=== PATIENT | male | born 1945 | race Caucasian/White ===

== ENCOUNTER 2020-01-08 18:30 | Inpatient (IN) | payer MEDICARE, MEDICAID, SELFPAY ==
[2020-01-08] VITALS (25 sets, daily range): BP systolic 118–158; BP diastolic 69–106; PULSE 82–94; RESP 19–34; TEMP 36.6; O2SAT 94–100
--- NOTE | ~2020-01-08 | CT_ITS ---
EXAMINATION: CT brain wo con, CT facial bones wo con EXAM DATE: 01/09/2020 14:22 INDICATION: Fell this morning. Facial injury. TECHNIQUE: Spiral CT of the head was performed without contrast. Axial, coronal and sagittal images were reviewed. Spiral CT of the facial bones was performed without contrast. Axial images were revie wed. Coronal and sagittal reformatted images were also reviewed. The dose-length product (DLP) for this examination was 681.00 (accession [id number]), 485.66 (accession [id number]) mGy-cm. Th e exposure was tailored according to patient size, and iterative reconstruction (ASIR) was used as ad ditional dose reduction technique. There is no prior study for comparison. 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 Old small right occipital lobe infarction. There is no acute intraparenchymal hemorrhage. No evidence of intraparenchymal brai n mass lesion. No evidence of acute infarction. There is mild to moderate periventricular and subcor tical hypodensity, nonspecific but probably related to small vessel ischemic disease. There is mild to moderate prominence of the sulci and ventricles related to cerebral atrophy. There is intracran ial carotid arteriosclerosis. There is no mass effect or midline shift. There is no obstructive hyd rocephalus suspected. There are no extra-axial collections. There are no calvarial acute fractures. FACIAL CT: There are bilateral nasal bone fractures which could be acute or acute on chronic, some b uckling and minimal depression on the left side. Possible overlying laceration, clinical correlation. There is moderate to severe leftward nasal septal deviation, without septal fracture suspected. Righ t-sided sara bullosa. 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 Patient has had left-sided ocular lens surgery. The visualized sinuses and mastoid air cells are well aerated. IMPRESSION: 1. No acute intracranial findings. 2. Bilateral nasal bone fractures, acute or acute on chronic. Reviewed, dictated and finalized at location A. NESS DEVELOPMENT DIRECTOR IMPRESSION: 1. No acute intracranial findings. 2. Bilateral nasal bone fractures, acute or acute on chronic.
--- NOTE | ~2020-01-08 | XR_ITS ---
EXAMINATION: XR chest 1V portable EXAM DATE: 01/08/2020 18:49 INDICATION: Increasing shortness of breath. TECHNIQUE: Portable AP frontal chest x-ray was obtained. There is no prior study for comparison. FINDINGS: The cardiac silhouette is enlarged. There is pulmonary vascular congestion. There is extens francisco indistinct reticulation with a bibasal predominance which may indicate pulmonary edema. Probable small to moderate subpulmonic pleural effusions. Sternotomy wires are present without findings to sug gest sternal dehiscence. There is no pneumothorax suspected. There are no osseous abnormalities ident ified. IMPRESSION: 1. Findings suspicious for moderate CHF exacerbation. 2. Infection not excludable. Reviewed, dictated and finalized at location A. CORRECTIONS
--- NOTE | 2020-01-08 18:29 | ECG_ITS ---
Measurements Intervals [place] Rate: 90 P: 50 CT: 152 QRS: 28 QRSD: 115 T: 72 QT: 344 QTc: 423 Interpretive Statements SINUS RHYTHM ATRIAL PREMATURE COMPLEX POSSIBLE LEFT ATRIAL ENLARGEMENT INTRAVENTRICULAR CONDUCTION DELAY DELAYED PRECORDIAL R/S TRANSITION LOW QRS VOLTAGE IN LIMB LEADS BORDERLINE ST-T WAVE ABNORMALITY- INF/HIGH LAT LEADS BASELINE WANDER- V2 Electronically Signed On 01-09-2020 8:40:16 HOT PLATE PRESS OPERATOR by Jose Bhandari D.O.
--- NOTE | 2020-01-08 18:36 | PC.NURSE ---
Patient unable to provide at home med list and past medical history. States he doesn't know any of them and he doesn't know what pharmacy he uses.
--- NOTE | 2020-01-08 18:40 | ED.SOB ---
HPI - SOB/Dyspnea General Chief Complaint: Shortness of Breath/Dyspnea Stated Complaint: Shortness of breath Time Seen by Provider: 01/08/20 18:31 History of Present Illness HPI Narrative: History limited by extremely poor historian. He reports that he has been short of breath since he was a child. Worse recently. He denies that he has any medical problems, but says that he is on a lot of medications and does not know what they are for. He was apparently at another hospital yesterday. He does not know which one or whether he was admitted. He says that he lost his PCP 4 years ago and has not gotten a new one. No fever, chest pain, leg swelling. Related Data Home Medications Medication Instructions Recorded Confirmed Daliresp 500 mcg PO DAILY 01/09/20 01/09/20 Flovent HFA 220 mcg INHALATION BID 01/09/20 01/09/20 Trelegy Ellipta 1 inh INHALATION DAILY 01/09/20 01/09/20 albuterol sulfate 2 puff INHALATION Q4-6H PRN 01/09/20 01/09/20 amlodipine 5 mg PO DAILY 01/09/20 01/09/20 aspirin 325 mg PO DAILY 01/09/20 01/09/20 celecoxib [Celebrex] 200 mg PO DAILY 01/09/20 01/09/20 doxycycline hyclate 100 mg PO BID 01/09/20 01/09/20 ezetimibe 10 mg PO DAILY 01/09/20 01/09/20 levetiracetam 500 mg PO BID 01/09/20 01/09/20 lisinopril 40 mg PO DAILY 01/09/20 01/09/20 metoprolol tartrate 50 mg PO Q12H 01/09/20 01/09/20 montelukast 10 mg PO HS 01/09/20 01/09/20 olanzapine 5 mg PO DAILY 01/09/20 01/09/20 olanzapine 10 mg PO HS 01/09/20 01/09/20 prednisone 20 mg PO BID 01/09/20 01/09/20 simvastatin 40 mg PO QPM 01/09/20 01/09/20 Allergies Allergy/AdvReac Type Severity Reaction Status Date / Time morphine Allergy Unknown Verified 01/09/20 02:41 Review of Systems Review of Systems: All systems reviewed & are unremarkable except as noted in HPI and below Constitutional: Constitutional: Denies fever(s) Cardiovascular: Cardiovascular: Denies chest pain Respiratory: Respiratory: Reports dyspnea Gastrointestinal: Gastrointestinal: Denies abdominal pain, Denies nausea and Denies vomiting Neurologic: Denies numbness and Denies weakness [facility] Past Medical History Medical History Medical history unknown Unknown family medical history Surgical History Surgical History Hx of CABG Family History Family History Other Acute myocardial infarction Unknown family medical history Social History Social History Smoking packs per day: 2 Smoking cigarettes per day: 40.0 Smoking status: Current every day smoker Tobacco type: cigarettes Second hand tobacco smoke exposure: Yes Alcohol intake: former Substance use: never Substance use type: does not use Gender identity (if verbalized by the patient): Male Sexual Orientation (if Verbalized by the Patient): Straight or Heterosexual Spiritual care concerns: No Exam Const: General: alert and ill appearing chronically Orientation/consciousness: patient oriented x3 HENMT: Head: normal to inspection Eyes: Pupils: Equal, round and reactive pupils present Resp: Effort & Inspection: tachypneic Auscultation: crackles and wheezes Cardio: Rate: regular rate Rhythm: regular rhythm GI: GI Palp: Yes Soft to palpation and No Tenderness to palpation present (GI) Skin: General skin exam: normal color Neuro: General: patient oriented x3 and moves all extremities Extrem: General: no edema Course Vital Signs Vital signs: Vital Signs Temperature 36.6 C 01/08/20 18:29 Pulse Rate 94 01/08/20 18:29 Respiratory Rate 34 H 01/08/20 18:29 Blood Pressure 158/96 H 01/08/20 18:29 Pulse Oximetry 97 01/08/20 18:29 Temperature 36.8 C 01/12/20 10:00 Pulse Rate 68 01/12/20 10:00 Respiratory Rate 20 01/12/20 10:00 Blood Pressure 107/50 L 01/12/20 10:00 Pul
[2020-01-08 19:04] LABS: Basophils Percent Auto 0.1 % (0.2-1.2); Eosinophils Absolute Auto 0.1 K/mm3 (0-0.3); Eosinophils Percent Auto 0.5 % (0-4.4); Hematocrit 36.8 % (42.0-52.0); Hemoglobin 11.5 g/dL (14.0-18.0); Immature Granulocyte Absolute 0.06 K/mm3 (0.00-0.031); Immature Granulocyte Percent A 0.5 % (0-0.5); Lymphocytes Absolute Auto 1.62 K/mm3 (0.9-3.2); Lymphocytes Percent Auto 12.3 % (18.3-44.2); Mean Corpuscular HGB Conc 31.3 g/dl (32-36); Mean Corpuscular Hemoglobin 26.8 pg (26-34); Mean Corpuscular Volume 85.8 fl (80-100); Mean Platelet Volume 10.4 fl (7.4-10.4); Monocytes Absolute Auto 0.8 K/mm3 (0.1-0.6); Monocytes Percent Auto 6.1 % (2.6-8.5); Neutrophils Absolute Auto 10.6 K/mm3 (1.3-6.7); Neutrophils Percent Auto 80.5 % (45.5-73.1); Nucleated Red Blood Cells Perc 0.2 % (0.0-0.2); Platelet Count Result 304 k/mm3 (150-375); Red Blood Count 4.29 M/mm3 (4.6-6.20); Red Cell Distribution Width 15.4 % (11.5-14.5); White Blood Count 13.2 K/mm3 (4.5-10.0)
[2020-01-08] MEDS: METOPROLOL TARTRATE INJ 5 MG/5 ML VIAL IV PUSH (19:06)
[2020-01-08] MEDS: FUROSEMIDE INJ 40 MG/4 ML VIAL IV PUSH (19:06)
[2020-01-08 19:19] LABS: Potassium 3.9 mmol/L (3.4-5.0)
[2020-01-08 19:23] LABS: Anion Gap 7 mmol/L (8-16); Blood Urea Nitrogen 24 mg/dL (9-20); Calcium 8.3 mg/dL (8.4-10.2); Carbon Dioxide 28 mmol/L (22-30); Chloride 105 mmol/L (98-107); Estimated Glomerular Filt Rate > 60; Glucose 115 mg/dL (75-110); Sodium 140 mmol/L (137-145)
[2020-01-08 19:28] LABS: Alveolar/Arterial O2 Gradient 47.4 mmHg; Base Excess ABG -1.3 mEq/l (+/-2.0); Fractional Inspired Oxygen 21 %; HCO3 ABG 21.9 mEq/l (22.0-26.0); Oxygen Content ABG 15.8 %vol (16.0-22.0); Oxygen Saturation ABG 93.5 % (95.0-100.0); Oxyhemoglobin 88.4 % THb (90.0-100.0); PCO2 ABG 32.3 mmHg (35.0-45.0); PO2 ABG 63.7 mmHg (80.0-100.0); PO2 FiO2 Ratio Arterial Blood 3.03 %; Total Hemoglobin 12.7 g/dL (12.0-18.0)
[2020-01-08 19:29] LABS: Device ROOM AIR; Modified Allen's Test Pass; Site Drawn LEFT RADIAL
[2020-01-08 19:44] LABS: NT Pro B Type Natriuretic Pept 17500 PG/ML (5-100); Troponin I 0.065 ng/mL (0.000-0.034)
--- NOTE | 2020-01-08 21:46 | PM.IMHP ---
H&P: HPI History of Present Illness Date/Time: 01/08/20 21:46 Chief complaint: CHF exacerbation, pneumonia, COPD Narrative: This is a 75-year-old obese male with CAD+ s/p CABG who presented to the hospital this evening at the behest of his family secondary to increased shortness of breath and wheezing. the patient admits that he has emphysema and is known to smoke more than 2 packs of cigarettes daily. He tells me that he does not take any medications daily and he does not regularly see doctors. The patient was recently admitted to [facility] and signed himself out against medical advice yesterday. Tonight he denies any significant chest pain, fever, chills, palpitations, abdominal pain, nausea, vomiting, dysuria, hematuria, diarrhea, rectal bleeding, or focal neurological deficits. The patient was evaluated emergency room this evening and chest x-ray demonstrated bilateral pulmonary edema and cardiomegaly. ABG showed hypoxemia and routine labs demonstrated a mildly elevated troponin of 0.065. BNP was elevated at 17,500. He cannot tell me if he has been diagnosed in the past with congestive heart failure. He has been treated in the emergency room this evening with IV Lasix and IV antibiotics. He was swabbed for Coronavirus. We been asked to admit the patient to the hospital for further care. Review of Systems Review of Systems: All systems reviewed & are unremarkable except as noted in HPI and below PMFSH Past Medical History Medical History (Updated 01/08/20 @ 22:00 by Bam Diaz MD) Medical history unknown Unknown family medical history Surgical History Surgical History (Updated 01/08/20 @ 21:52 by Bam Diaz MD) Hx of CABG Family History Family History Other Acute myocardial infarction Unknown family medical history Social History Social History (Updated 01/08/20 @ 21:53 by Bam Diaz MD) Smoking packs per day: 2 Smoking cigarettes per day: 40.0 Smoking status: Current every day smoker Tobacco type: cigarettes Second hand tobacco smoke exposure: Yes Alcohol intake: former Substance use: never Substance use type: does not use Gender identity (if verbalized by the patient): Male Sexual Orientation (if Verbalized by the Patient): Straight or Heterosexual Spiritual care concerns: No Meds Home Medications and Allergies Home Medications Medication Instructions Recorded Confirmed Type albuterol sulfate 2 puff INHALATION Q4-6H PRN 01/09/20 01/09/20 History amlodipine 5 mg PO DAILY 01/09/20 01/09/20 History aspirin 325 mg PO DAILY 01/09/20 01/09/20 History celecoxib [Celebrex] 200 mg PO DAILY 01/09/20 01/09/20 History doxycycline hyclate 100 mg PO BID 01/09/20 01/09/20 History ezetimibe 10 mg PO DAILY 01/09/20 01/09/20 History fluticasone propionate [Flovent 220 mcg INHALATION BID 01/09/20 01/09/20 History HFA] [id number]-[id number]-hteaeeon 1 inh INHALATION DAILY 01/09/20 01/09/20 History [Trelegy Ellipta] levetiracetam 500 mg PO BID 01/09/20 01/09/20 History lisinopril 40 mg PO DAILY 01/09/20 01/09/20 History metoprolol tartrate 50 mg PO Q12H 01/09/20 01/09/20 History montelukast 10 mg PO HS 01/09/20 01/09/20 History olanzapine 5 mg PO DAILY 01/09/20 01/09/20 History olanzapine 10 mg PO HS 01/09/20 01/09/20 History prednisone 20 mg PO BID 01/09/20 01/09/20 History roflumilast [Daliresp] 500 mcg PO DAILY 01/09/20 01/09/20 History simvastatin 40 mg PO QPM 01/09/20 01/09/20 History Allergies Allergy/AdvReac Type Severity Reaction Status Date / Time morphine Allergy Unknown Verified 01/09/20 02:41 Vital Signs Vital Signs - 24 hr 01/08/20 18:29 01/08/20 18:37 01/08/20 19:06 Temperature 36.6 C Pulse Rate 94 92 91 Respiratory Rate 34 H Blood Pressure 158/96 H Pulse Oximetry 97 98 01/08/20 19:07 01/08/20 19:20 Temperature Pulse Rate 87 Respi
[2020-01-08 22:50] LABS: Magnesium 2.2 mg/dL (1.6-2.3)
[2020-01-09] VITALS (27 sets, daily range): BP systolic 108–138; BP diastolic 59–103; PULSE 62–109; RESP 16–30; TEMP 36.1–36.4; O2SAT 90–97; BMI 25.4
[2020-01-09] MEDS: LORazepam INJ (*CRX) 2 MG/ML VIAL 1 MG IV PUSH ×2 (00:01→05:09)
[2020-01-09 02:27] LABS: Troponin I 0.065 ng/mL (0.000-0.034)
[2020-01-09 03:47] LABS: Influenza Control Positive
[2020-01-09 05:26] LABS: Hematocrit 37.9 % (42.0-52.0); Hemoglobin 11.8 g/dL (14.0-18.0); Immature Granulocyte Absolute 0.05 K/mm3 (0.00-0.031); Immature Granulocyte Percent A 0.4 % (0-0.5); Lymphocytes Absolute Auto 1.76 K/mm3 (0.9-3.2); Lymphocytes Percent Auto 15.7 % (18.3-44.2); Mean Corpuscular HGB Conc 31.1 g/dl (32-36); Mean Corpuscular Hemoglobin 26.4 pg (26-34); Mean Corpuscular Volume 84.8 fl (80-100); Mean Platelet Volume 10.4 fl (7.4-10.4); Monocytes Absolute Auto 0.7 K/mm3 (0.1-0.6); Monocytes Percent Auto 6.1 % (2.6-8.5); Neutrophils Absolute Auto 8.7 K/mm3 (1.3-6.7); Neutrophils Percent Auto 77.8 % (45.5-73.1); Platelet Count Result 293 k/mm3 (150-375); Red Blood Count 4.47 M/mm3 (4.6-6.20); White Blood Count 11.2 K/mm3 (4.5-10.0)
--- NOTE | 2020-01-09 05:39 | ADMGEN ---
This patient, Leonard Martin, was admitted to IMU Room 207-01 on 01/08/20 at 2330. Patient/family oriented to hospital policies and general routines including ID bracelet, bed and alarms, visiting hours, pain management, procedures, bathroom and other care routines, personal items, smoking policy, room service/diet, and visiting hours. Information on how to activate the Rapid Response Team has been discussed. Patient/Family are encouraged to report perceived risks to care and to ask questions if they do not understand what they are told or what they should do.
--- NOTE | 2020-01-09 05:40 | PC.NURSE ---
01/08/20 at 2335-Pt noted to be beligerant to nursing staff, attempting to pull out IV and refusing to put on the teletmetry monitor and hospital gown and is refusing to leave the O2 cannula in his nose. Pt wanting to sign out AMA and states I will just walk home then . Pt is only A&Ox1 at this time. Dr. Diaz called and updated on Pt's condition. 2336-Pt's temper escalated and Pt is no longer staying in the bed with redirection. Veronica Corcoran called overhead. Dr. Diaz at bedside to assess the Pt and new orders received. Will continue to monitor the Pt closely.
[2020-01-09 05:46] LABS: Anion Gap 9 mmol/L (8-16); Blood Urea Nitrogen 22 mg/dL (9-20); Calcium 8.4 mg/dL (8.4-10.2); Carbon Dioxide 28 mmol/L (22-30); Chloride 103 mmol/L (98-107); Estimated CRCL calculation 59 ml/min; Estimated Glomerular Filt Rate > 60; Glucose 100 mg/dL (75-110); Potassium 3.9 mmol/L (3.4-5.0); Sodium 140 mmol/L (137-145)
--- NOTE | 2020-01-09 08:24 | PM.IMPN ---
Progress Note: A&P Assessment and Plan (1) Tobacco dependence: Code(s): F17.200 - Nicotine dependence, unspecified, uncomplicated Status: Chronic (2) Suspected 2019 novel coronavirus infection: Code(s): Z20.828 - Contact with and (suspected) exposure to other viral communicable diseases Status: Acute (3) Elevated troponin: Code(s): R77.8 - Other specified abnormalities of plasma proteins Status: Acute (4) Acute hypoxemic respiratory failure: Code(s): J96.01 - Acute respiratory failure with hypoxia Status: Acute (5) Leukocytosis: Qualifiers: Leukocytosis type: unspecified Qualified Code(s): D72.829 - Elevated white blood cell count, unspecified Code(s): D72.829 - Elevated white blood cell count, unspecified Status: Acute (6) Acute exacerbation of chronic obstructive pulmonary disease (COPD): Code(s): J44.1 - Chronic obstructive pulmonary disease with (acute) exacerbation Status: Acute (7) Acute exacerbation of CHF (congestive heart failure): Qualifiers: Heart failure type: unspecified Qualified Code(s): I50.9 - Heart failure, unspecified Code(s): I50.9 - Heart failure, unspecified Status: Acute (8) Altered mental status: Qualifiers: Altered mental status type: somnolence Qualified Code(s): R40.0 - Somnolence Code(s): R41.82 - Altered mental status, unspecified Status: Acute (9) Nasal bone fracture: Code(s): S02.2XXA - Fracture of nasal bones, initial encounter for closed fracture Status: Acute Additional Plan # acute encephalopathy -CT head did not find any intracranial issues -ordered brain MRI, EEG, consulting Neurology -patient does Keppra home medication, may have seizure history -q4hr neuro checks -patient was given Xanax 2 mg however he was altered prior to medication -will be careful as we cannot do 1 on 1 sitter while COVID is being ruled out -use bed alarm, fall precautions -patient has psychiatric history, may have dementia -obtaining primary care provider notes -check UDS # fall secondary to sedation # acute on chronic nasal fracture -patient fell on his face -CT head did not find any intracranial issues, there is acute on chronic nasal fracture, clinically he has no blood in nares and no obvious bruising so it is unclear how acute it truly is. he has a history of facial surgeries and cleft palate -patient has a history of cleft palate # hypoxia -nonlabored respirations with good O2 saturation by the a.m. -COVID-19 test pending, versus COPD exacerbation versus CHF exacerbation -continue isolation precautions until COVID-19 test results -he has coarse lung sounds and after CT scan needed 2 L oxygen but was on room air all morning # chronic conditions -CAD, history of CO with CHF: Aspirin, statin, metoprolol, ezetimibe -hypertension: Metoprolol, lisinopril, amlodipine -COPD: Daliresp, prednisone, Singulair, trelegy, albuterol -psychiatric medications, likely dementia: On olanzapine, will see PCP notes -likely seizure history: On Keppra -patient on doxycycline -osteoarthritis: celebrex Diet: Carb controlled fluid restricted if awake enough to eat DVT prophylaxis: SCDs Code status: Full code Disposition: IMU Subjective Date/time seen: 01/09/20 08:24 Patient examined. He was naked this morning and refused to talk to me. He apparently had left AMA from a different facility. He is not cooperating with staff. Was agitated removed his IVs. Because he was walking up and down hallways he was given 2 mg Xanax and went back to bed. Patient did tolerate taking his p.o. medications. Later in the morning he wanted to leave, got dressed, started walking out on his own, on his way out of his room he had fallen face forward. CT head showed acute on chronic bilateral nasal fractures. Patient is COVID-19 rule out. He is not having any respiratory issues breathin
[2020-01-09] MEDS: FLUTICASONE PROP 220 MCG (*SP) 12 GM INHALER 2 PUFF INHALATION ×2 (09:08→20:58)
[2020-01-09] MEDS: levETIRAcetam 500 MG TABLET PO (11:38)
[2020-01-09] MEDS: ASPIRIN 325 MG ENTERIC TABLET PO (11:38)
[2020-01-09] MEDS: amLODIPine BESYLATE 5 MG TABLET PO (11:38)
[2020-01-09] MEDS: lisinopriL 20 MG TABLET 40 MG PO (11:38)
[2020-01-09] MEDS: METOPROLOL TARTRATE 50 MG TAB PO (11:40)
[2020-01-09] MEDS: ROFLUMILAST 500 MCG TABLET PO (11:41)
[2020-01-09] MEDS: ALPRAZolam (*CRX) 0.5 MG TABLET 2 MG PO (12:01)
[2020-01-09 13:24] LABS: Glucose Point of Care 81 (65-105)
[2020-01-09] MEDS: FUROSEMIDE INJ 40 MG/4 ML VIAL IV PUSH (20:17)
[2020-01-09] MEDS: ALBUTEROL SULFATE (*SP) AEROSOL 1 PUFF 2 PUFF INHALATION (20:58)
[2020-01-09 23:54] LABS: SARS-CoV-2 RNA PCR Negative
[2020-01-10] VITALS (17 sets, daily range): BP systolic 90–157; BP diastolic 52–80; PULSE 68–100; RESP 16–26; TEMP 35.9–36.6; O2SAT 90–98
[2020-01-10] MEDS: OLANZapine 10 MG INJ VIAL IM ×2 (01:16→21:24)
[2020-01-10] MEDS: ALBUTEROL SULFATE (*SP) AEROSOL 1 PUFF 2 PUFF INHALATION (03:27)
[2020-01-10 05:24] LABS: Hematocrit 41.4 % (42.0-52.0); Hemoglobin 13.5 g/dL (14.0-18.0); Mean Corpuscular HGB Conc 32.6 g/dl (32-36); Mean Corpuscular Hemoglobin 27.1 pg (26-34); Mean Platelet Volume 10.2 fl (7.4-10.4); Platelet Count Result 266 k/mm3 (150-375); Red Blood Count 4.99 M/mm3 (4.6-6.20); White Blood Count 10.2 K/mm3 (4.5-10.0)
[2020-01-10 05:35] LABS: Anion Gap 8 mmol/L (8-16); Blood Urea Nitrogen 21 mg/dL (9-20); Calcium 8.5 mg/dL (8.4-10.2); Carbon Dioxide 30 mmol/L (22-30); Chloride 101 mmol/L (98-107); Estimated CRCL calculation 59 ml/min; Estimated Glomerular Filt Rate > 60; Glucose 84 mg/dL (75-110); Potassium 3.4 mmol/L (3.4-5.0); Sodium 139 mmol/L (137-145)
[2020-01-10 09:06] LABS: Alveolar/Arterial O2 Gradient 53.3 mmHg; Base Excess ABG 2.3 mEq/l (+/-2.0); Carboxyhemoglobin 1.4 % THb (0-2.0); Fractional Inspired Oxygen 21 %; HCO3 ABG 25.8 mEq/l (22.0-26.0); Methemoglobin ABG 0.3 %THb (0-1.5); Oxygen Content ABG 17.7 %vol (16.0-22.0); Oxygen Saturation ABG 89.6 % (95.0-100.0); Oxyhemoglobin 86.5 % THb (90.0-100.0); PCO2 ABG 36.3 mmHg (35.0-45.0); PO2 FiO2 Ratio Arterial Blood 2.52 %; Reduced Hemoglobin 11.8 %THb (0-5.0); Total Hemoglobin 14.6 g/dL (12.0-18.0); pH ABG 7.469 (7.350-7.450)
[2020-01-10 09:07] LABS: Device ROOM AIR; Modified Allen's Test Pass; Site Drawn LEFT RADIAL
--- NOTE | 2020-01-10 09:50 | PCOTNOTE ---
OT evaluation held in AM per nursing as patient is not appropriate at this time, will attempt this afternoon.
[2020-01-10] MEDS: amLODIPine BESYLATE 5 MG TABLET PO (10:09)
[2020-01-10] MEDS: ASPIRIN 325 MG ENTERIC TABLET PO (10:09)
[2020-01-10] MEDS: levETIRAcetam 500 MG TABLET PO ×2 (10:09→17:31)
[2020-01-10] MEDS: lisinopriL 20 MG TABLET 40 MG PO (10:09)
[2020-01-10] MEDS: ROFLUMILAST 500 MCG TABLET PO (10:10)
[2020-01-10] MEDS: FUROSEMIDE INJ 40 MG/4 ML VIAL IV PUSH (10:10)
[2020-01-10] MEDS: METOPROLOL TARTRATE 50 MG TAB PO (10:10)
--- NOTE | 2020-01-10 10:41 | WPDNEURCNPN ---
Assessment and Plan Assessment and plan (1) Altered mental status: Qualifiers: Altered mental status type: somnolence Qualified Code(s): R40.0 - Somnolence Code(s): R41.82 - Altered mental status, unspecified Status: Acute Additional Plan neuro stable treatment as such will review the EEG Consult date: 01/10/20 Time Seen: 10:41 HPI: Leonard Martin is a 75 year old male admitted to the hospital for the complaints of CHF , COPD and pneumonia. Patient is known to have emphysema and was experiencing increasing difficulties in breathing. He was recently admitted to [facility] from where he signed out against medical advice. He received IV Lasix in the emergency room and swabbed for Coronavirus and admitted to the hospital for further care. Patient is a current everyday smoker though not drinker. Routine labs revealed mild leukocytosis with hemoglobin now 13.5 platelet count of 266 PO2 53 with pH 7.4 saturation only 89.[address] scan of the head negative also cultures are pending Review of Systems Review of Systems: All systems reviewed & are unremarkable except as noted in HPI and below PMFSH Past Medical History Medical History Medical history unknown Unknown family medical history Surgical History Surgical History Hx of CABG Family History Family History Other Acute myocardial infarction Unknown family medical history Social History Social History Smoking packs per day: 2 Smoking cigarettes per day: 40.0 Smoking status: Current every day smoker Tobacco type: cigarettes Second hand tobacco smoke exposure: Yes Alcohol intake: former Substance use: never Substance use type: does not use Gender identity (if verbalized by the patient): Male Sexual Orientation (if Verbalized by the Patient): Straight or Heterosexual Spiritual care concerns: No Meds Home Medications and Allergies Home Medications Medication Instructions Recorded Confirmed Type albuterol sulfate 2 puff INHALATION Q4-6H PRN 01/09/20 01/09/20 History amlodipine 5 mg PO DAILY 01/09/20 01/09/20 History aspirin 325 mg PO DAILY 01/09/20 01/09/20 History celecoxib [Celebrex] 200 mg PO DAILY 01/09/20 01/09/20 History doxycycline hyclate 100 mg PO BID 01/09/20 01/09/20 History ezetimibe 10 mg PO DAILY 01/09/20 01/09/20 History fluticasone propionate [Flovent 220 mcg INHALATION BID 01/09/20 01/09/20 History HFA] bpkjgeellto-yhiughwsh-ijnmvpbh 1 inh INHALATION DAILY 01/09/20 01/09/20 History [Trelegy Ellipta] levetiracetam 500 mg PO BID 01/09/20 01/09/20 History lisinopril 40 mg PO DAILY 01/09/20 01/09/20 History metoprolol tartrate 50 mg PO Q12H 01/09/20 01/09/20 History montelukast 10 mg PO HS 01/09/20 01/09/20 History olanzapine 5 mg PO DAILY 01/09/20 01/09/20 History olanzapine 10 mg PO HS 01/09/20 01/09/20 History prednisone 20 mg PO BID 01/09/20 01/09/20 History roflumilast [Daliresp] 500 mcg PO DAILY 01/09/20 01/09/20 History simvastatin 40 mg PO QPM 01/09/20 01/09/20 History Allergies Allergy/AdvReac Type Severity Reaction Status Date / Time morphine Allergy Unknown Verified 01/09/20 02:41 Vital Signs Vital Signs - 24 hr 01/09/20 11:40 01/09/20 12:00 01/09/20 13:15 Temperature 36.4 C L Pulse Rate 100 96 76 Respiratory Rate 16 Blood Pressure 114/87 Pulse Oximetry 92 94 01/09/20 13:30 01/09/20 13:45 01/09/20 14:00 Temperature Pulse Rate 75 77 72 Respiratory Rate 16 20 Blood Pressure 112/68 108/76 Pulse Oximetry 93 94 01/09/20 14:30 01/09/20 15:00 01/09/20 15:46 Temperature 36.4 C L Pulse Rate 78 77 76 Respiratory Rate 18 20 16 Blood Pressure 132/69 108/59 L 114/87 Pulse Oximetry 97 96 94 01/09/20 16:00 01/09/20 17:00
[2020-01-10] MEDS: ALBUTEROL SULFATE NEB 2.5 MG/0.5 ML INH INHALATION (15:01)
--- NOTE | 2020-01-10 15:56 | PC.NURSE ---
1536 noted patient telemetry off. Upon entering the room patient in chair next to bed with gown, repair miller and leads in hand. I'm getting in my car and going home. reapplied telemetry and gown. Reoriented to location and encouraged to return to bed. I'm NOT going back to that fucking bed. I'm going home. Call this number and tell them to pick me up. Chair alarm placed under the patient in an effort to promote safety. I'm just going to pull that fucking shit off tonight.
--- NOTE | 2020-01-10 17:07 | PM.IMPN ---
Progress Note: A&P Assessment and Plan (1) Tobacco dependence: Code(s): F17.200 - Nicotine dependence, unspecified, uncomplicated Status: Chronic (2) Elevated troponin: Code(s): R77.8 - Other specified abnormalities of plasma proteins Status: Acute (3) Acute hypoxemic respiratory failure: Code(s): J96.01 - Acute respiratory failure with hypoxia Status: Acute Assessment and Plan: Appears to be secondary to acute congestive heart failure exacerbation. patient is comfortable on room air. (4) Acute exacerbation of CHF (congestive heart failure): Qualifiers: Heart failure type: unspecified Qualified Code(s): I50.9 - Heart failure, unspecified Code(s): I50.9 - Heart failure, unspecified Status: Acute Assessment and Plan: Patient clearly appears fluid overloaded with acute pulmonary edema and acute respiratory failure. We will continue IV Lasix therapy. Monitor fluid status. Daily weights. Is and Os, Sodium prudent fluid restricted diet. TSH reflex T4, echocardiogram. (5) Altered mental status: Qualifiers: Altered mental status type: somnolence Qualified Code(s): R40.0 - Somnolence Code(s): R41.82 - Altered mental status, unspecified Status: Acute (6) Nasal bone fracture: Qualifiers: Encounter type: initial encounter Fracture type: closed Qualified Code(s): S02.2XXA - Fracture of nasal bones, initial encounter for closed fracture Code(s): S02.2XXA - Fracture of nasal bones, initial encounter for closed fracture Status: Acute Additional Plan # acute encephalopathy secondary to psychiatric -CT head did not find any intracranial issues, unable to do MRI questionnaire -EEG complete 01/10/2020 awaiting read, consulted Neurology -patient takes Keppra home medication, may have seizure history, awaiting EEG results -patient has psychiatric history, may have dementia -use bed alarm, fall precautions -obtaining primary care provider notes -checking UDS # fall secondary to sedation /Altered mental status # acute on chronic nasal fracture -patient fell on his face 01/08 -CT head did not find any intracranial issues, there is acute on chronic nasal fracture, clinically he has no blood in nares and no obvious bruising so it is unclear how acute it truly is. he has a history of facial surgeries and cleft palate -patient has a history of cleft palate # severe aortic stenosis, systolic heart failure with ejection fraction 30-35% -nonlabored respirations with good O2 saturation during the day, ABG reviewed - COVID-19 negative. No wheezing on lung exam, not COPD exacerbation. There is some crackles at right lower lung base may be CHF -Will continue home medication -echocardiogram 01/10/2020: LVEF 30-35%, severe aortic stenosis aortic valve area 1 cm -albuterol nebs q.i.d. - stopping antibiotics - Weaning Lasix to once daily 40 mg IV, patient has aortic stenosis and is preload dependent # chronic conditions -CAD, history of [place] with CHF: Aspirin, statin, metoprolol, ezetimibe -hypertension: Metoprolol, lisinopril, amlodipine -COPD: Daliresp, prednisone, Singulair, trelegy, albuterol -psychiatric medications, likely dementia: On olanzapine, will see PCP notes -likely seizure history: On Keppra -patient on doxycycline -osteoarthritis: celebrex Diet: restarted diet, Carb controlled fluid restricted DVT prophylaxis: SCDs Code status: Full code Disposition: medical floor, no episodes on telemetry, DC telemetry Subjective Date/time seen: 01/10/20 17:07 Patient examined. His nose does not look bruised and no blood. his fracture that was seen on imaging was likely chronic. He removed his telemetry wanting to be naked, Patient has not had any episodes on his telemetry, will discontinue telemetry. transferring to 3rd floor, patient may need sitter. patient removed his oxygen and was breathing comfortably on
[2020-01-10] MEDS: SIMVASTATIN 20 MG TABLET 40 MG PO (17:31)
--- NOTE | 2020-01-10 18:20 | PC.NURSE ---
This patient, Leonard Martin, was transferred to [[id number]] on 01/10/20 at 1820. Personal belongings sent with patient. Report given to [Brittaney GONZALEZ]. Appropriate documentation sent with patient.
--- NOTE | 2020-01-10 18:39 | PC.NURSE ---
Patient was received from IMU on 01/10/2020 at 1830, call light within reach.
--- NOTE | 2020-01-10 22:04 | ECHO_ITS ---
Patient Info Name: Leonard Martin Age: 75 years : 1945 Gender: Male Ht: 70 in Wt: 194 lbs BSA: 2.10 m2 HR: 85 bpm BP: 145 / 77 mmHg Heart Rhythm: Sinus Rhythm Technical Quality: Good Exam Date: 01/10/2020 1:18 PM Exam Location: [facility] Pulmonary Patient Status: Inpatient Admit Date: 01/08/2020 Staff Ordering Physician: Bam Diaz MD Hr Intern: Flaquito Walker RDCS Attending Provider: Bam Diaz MD Referring Physician: Joe JONES; Exam Type: CA echo doppler color flow Study Info Indications I50.21 - Acute systolic (congestive) heart failure Complete two-dimensional, color flow and Doppler transthoracic echocardiogram is performed. Strain analysis performed. History/Risk Factors Acute CHF w/ BNP 17.5k; SOB, CAD/DE s/p CABG, HTN, COPD,. Summary 1. Complete two-dimensional, color flow and Doppler transthoracic echocardiogram is performed. 2. Left ventricular chamber dimension is moderately enlarged. 3. Left ventricular systolic function is moderately reduced, estimated at 30-35%. 4. Left atrial chamber dimension is moderately enlarged. 5. There is moderate to severe aortic valve stenosis with a peak velocity of 291 cm/s, mean gradient of 17 mmHg, and aortic valve area of 1.0 cm2. 6. There is mild aortic valve regurgitation. 7. There is mild mitral valve regurgitation. Left Ventricle Left ventricular chamber dimension is moderately enlarged. Left ventricular systolic function is moderately reduced, estimated at 30-35%. The left ventricular diastolic function is grade I diastolic dysfunction. Right Ventricle Right ventricular chamber dimension is normal. Left Atria Left atrial chamber dimension is moderately enlarged. Right Atria Right atrial chamber dimension is normal. Aortic Valve The aortic valve is trileaflet. There is moderate aortic valve sclerosis. There is moderate to severe aortic valve stenosis with a peak velocity of 291 cm/s, mean gradient of 17 mmHg, and aortic valve area of 1.0 cm2. There is mild aortic valve regurgitation. Pulmonic Valve The pulmonic valve is normal. Mitral Valve The mitral valve has normal leaflets. There is mild mitral valve regurgitation. Tricuspid Valve The tricuspid valve leaflets are normal. Pericardium/Pleural The pericardium appears normal. Aorta The aortic root size at the sinus of Valsalva is normal. Left Ventricular Outflow Tract Name Value Normal LVOT 2D LVOT Diameter 2.0 cm LVOT Doppler LVOT Peak Gradient 4 mmHg LVOT Mean Gradient 2 mmHg LVOT VTI 18 cm LVOT VTI/AV VTI Ratio 0.3 LVOT Stroke Volume 56 ml LVOT CO 3.9 l/min LVOT CI 1.9 l/min/m2 Mitral Valve Name Value Normal MV Doppler
[2020-01-11] VITALS (10 sets, daily range): BP systolic 106–156; BP diastolic 49–71; PULSE 52–107; RESP 14–24; TEMP 36.1–36.7; O2SAT 90–99
[2020-01-11 06:40] LABS: Hematocrit 39.9 % (42.0-52.0); Hemoglobin 12.6 g/dL (14.0-18.0); Mean Corpuscular HGB Conc 31.6 g/dl (32-36); Mean Corpuscular Hemoglobin 25.8 pg (26-34); Mean Corpuscular Volume 81.6 fl (80-100); Mean Platelet Volume 10.3 fl (7.4-10.4); Platelet Count Result 255 k/mm3 (150-375); Red Blood Count 4.89 M/mm3 (4.6-6.20); Red Cell Distribution Width 14.9 % (11.5-14.5); White Blood Count 9.4 K/mm3 (4.5-10.0)
[2020-01-11 07:01] LABS: Anion Gap 7 mmol/L (8-16); Blood Urea Nitrogen 29 mg/dL (9-20); Calcium 8.3 mg/dL (8.4-10.2); Carbon Dioxide 30 mmol/L (22-30); Chloride 103 mmol/L (98-107); Estimated CRCL calculation 50 ml/min; Estimated Glomerular Filt Rate 59; Glucose 105 mg/dL (75-110); Magnesium 2.3 mg/dL (1.6-2.3); Potassium 3.3 mmol/L (3.4-5.0); Sodium 140 mmol/L (137-145)
--- NOTE | 2020-01-11 07:47 | PM.IMPN ---
Progress Note: A&P Assessment and Plan (1) Nasal bone fracture: Qualifiers: Encounter type: initial encounter Fracture type: closed Qualified Code(s): S02.2XXA - Fracture of nasal bones, initial encounter for closed fracture Code(s): S02.2XXA - Fracture of nasal bones, initial encounter for closed fracture Status: Acute Assessment and Plan: Supportive care. Continue to monitor. (2) Altered mental status: Qualifiers: Altered mental status type: somnolence Qualified Code(s): R40.0 - Somnolence Code(s): R41.82 - Altered mental status, unspecified Status: Acute Assessment and Plan: Improved Supportive care Continue to monitor Likely secondary to meds (3) Tobacco dependence: Code(s): F17.200 - Nicotine dependence, unspecified, uncomplicated Status: Chronic Assessment and Plan: Patient smokes 2 packs of cigarrettes daily Nicotine patch as needed. (4) Suspected 2019 novel coronavirus infection: Code(s): Z20.828 - Contact with and (suspected) exposure to other viral communicable diseases Status: Acute Assessment and Plan: Ruled out. (5) Elevated troponin: Code(s): R77.8 - Other specified abnormalities of plasma proteins Status: Acute Assessment and Plan: Unchanged. No signs of ACS Continue to monitor (6) Acute hypoxemic respiratory failure: Code(s): J96.01 - Acute respiratory failure with hypoxia Status: Acute Assessment and Plan: Resolved Likely secondary to CHF exacerbation Now diuresed Continue to monitor. (7) Leukocytosis: Qualifiers: Leukocytosis type: unspecified Qualified Code(s): D72.829 - Elevated white blood cell count, unspecified Code(s): D72.829 - Elevated white blood cell count, unspecified Status: Acute Assessment and Plan: Likely to be reactive. No signs of sepsis. Now normal (8) Acute exacerbation of chronic obstructive pulmonary disease (COPD): Code(s): J44.1 - Chronic obstructive pulmonary disease with (acute) exacerbation Status: Acute Assessment and Plan: Improved. (9) Acute exacerbation of CHF (congestive heart failure): Qualifiers: Heart failure type: unspecified Qualified Code(s): I50.9 - Heart failure, unspecified Code(s): I50.9 - Heart failure, unspecified Status: Acute Assessment and Plan: Improved. Fluid restriction. Re started home meds Subjective Date/time seen: 01/11/20 07:47 Patient states that he feels fine. I had a talk with daughter over the phone today patient's functionality is very limited states that spends all day sitting watching TV and smokes more than 2 packs of cigarrettes daily, does not take his meds and does not follow up with the doctors. Has not taken his meds maybe since last April. Review of Systems Review of Systems: Narrative: Unable to get a thorough review of systems as patient is a poor historian likely underlying Dementia as well. Exam Narrative: Exam Narrative: Lying in bed. Const: General: comfortable, no acute distress, alert, awake and other (Chronically ill looking.) Nutritional Appearance: average body habitus Orientation/consciousness: oriented to person HENMT: Head: normal to inspection and normocephalic Ears: hearing grossly normal bilaterally General nose exam: Normal external nose present Face and sinus: normal facial exam Teeth and gingiva: poor dentition Eyes: General: appearance normal, both eyes and all related structures Pupils: Equal, round and reactive pupils present EOM: EOMs intact bilaterally Neck: Neck: normal visual inspection, full ROM, no lymphadenopathy and no JVD Resp: Effort & Inspection: normal respiratory effort Auscultation: clear to auscultation bilaterally Cardio: Jugular venous distension: no JVD Rate: regular rate Rhythm: regular rhythm GI: Inspection: normal to inspection GI Pa
[2020-01-11] MEDS: ALBUTEROL SULFATE NEB 2.5 MG/0.5 ML INH INHALATION ×2 (08:10→13:16)
[2020-01-11] MEDS: METOPROLOL TARTRATE 50 MG TAB PO ×2 (10:50→20:42)
[2020-01-11] MEDS: FUROSEMIDE INJ 40 MG/4 ML VIAL IV PUSH (10:50)
[2020-01-11] MEDS: ROFLUMILAST 500 MCG TABLET PO (10:50)
[2020-01-11] MEDS: lisinopriL 20 MG TABLET 40 MG PO (10:50)
[2020-01-11] MEDS: ASPIRIN 325 MG ENTERIC TABLET PO (10:51)
[2020-01-11] MEDS: levETIRAcetam 500 MG TABLET PO ×2 (10:51→16:44)
[2020-01-11] MEDS: amLODIPine BESYLATE 5 MG TABLET PO (10:51)
[2020-01-11] MEDS: SIMVASTATIN 20 MG TABLET 40 MG PO (16:44)
[2020-01-11] MEDS: MONTELUKAST SODIUM 10 MG TABLET PO (20:42)
[2020-01-12 02:00] VITALS: BP 108/63; PULSE 63; RESP 20; TEMP 36.3; O2SAT 99
[2020-01-12 06:00] VITALS: BP 99/48; PULSE 69; RESP 20; TEMP 36.5; O2SAT 97
[2020-01-12 08:01] LABS: Basophils Absolute Auto 0.1 K/mm3 (0.0-0.1); Basophils Percent Auto 0.5 % (0.2-1.2); Eosinophils Absolute Auto 0.2 K/mm3 (0-0.3); Eosinophils Percent Auto 1.3 % (0-4.4); Hematocrit 38.5 % (42.0-52.0); Hemoglobin 12.2 g/dL (14.0-18.0); Immature Granulocyte Absolute 0.06 K/mm3 (0.00-0.031); Immature Granulocyte Percent A 0.5 % (0-0.5); Lymphocytes Percent Auto 20.3 % (18.3-44.2); Mean Corpuscular HGB Conc 31.7 g/dl (32-36); Mean Corpuscular Hemoglobin 26.2 pg (26-34); Mean Corpuscular Volume 82.6 fl (80-100); Mean Platelet Volume 10.2 fl (7.4-10.4); Monocytes Absolute Auto 1.2 K/mm3 (0.1-0.6); Neutrophils Percent Auto 67.4 % (45.5-73.1); Platelet Count Result 253 k/mm3 (150-375); Red Blood Count 4.66 M/mm3 (4.6-6.20); Red Cell Distribution Width 15.3 % (11.5-14.5); White Blood Count 11.8 K/mm3 (4.5-10.0)
[2020-01-12 08:13] LABS: Anion Gap 4 mmol/L (8-16); Blood Urea Nitrogen 30 mg/dL (9-20); Calcium 8.6 mg/dL (8.4-10.2); Carbon Dioxide 33 mmol/L (22-30); Chloride 105 mmol/L (98-107); Estimated CRCL calculation 50 ml/min; Estimated Glomerular Filt Rate 59; Glucose 98 mg/dL (75-110); Potassium 3.3 mmol/L (3.4-5.0); Sodium 142 mmol/L (137-145)
[2020-01-12 08:24] VITALS: PULSE 70; PULSE 71; RESP 16; RESP 18; O2SAT 94
[2020-01-12] MEDS: ALBUTEROL SULFATE NEB 2.5 MG/0.5 ML INH INHALATION (08:24)
[2020-01-12] MEDS: FUROSEMIDE INJ 40 MG/4 ML VIAL IV PUSH (09:30)
[2020-01-12] MEDS: levETIRAcetam 500 MG TABLET PO (09:30)
[2020-01-12] MEDS: lisinopriL 20 MG TABLET 40 MG PO (09:30)
[2020-01-12] MEDS: amLODIPine BESYLATE 5 MG TABLET PO (09:30)
[2020-01-12] MEDS: ASPIRIN 325 MG ENTERIC TABLET PO (09:30)
[2020-01-12 09:31] VITALS: PULSE 87
[2020-01-12] MEDS: METOPROLOL TARTRATE 50 MG TAB PO (09:31)
[2020-01-12] MEDS: ROFLUMILAST 500 MCG TABLET PO (09:31)
--- NOTE | 2020-01-12 09:59 | WPDNEUROLOGY ---
Neurology EEG Report General Information Date of Study: 01/10/20 TEST eeg DIAGNOSIS acute encephalopathy CONDITION OF RECORDING drowsy and sleep EEG NUMBER [id number] CLINICAL HISTORY patient unable to give any history ,slept throughout the tracing and the EEG was done in IMU at the bedside EEG DESCRIPTION record consists of low to medium voltage 5 to 7 hertz per second theta admixed with low to medium voltage 2 to 3 hertz per second delta activity anteriorly bilaterally .symmetrical sleep spindles are seen throughout the tracing .non paroxysmal .hyperventilation not done.photic stimulation not done IMPRESSION abnormal record due to the presence of bihemispheric theta and delta activity without evidence of normal background rhythm. there is no evidence of seizures like activity throughout the tracing. Findings are suggestive of organic or metabolic encephalopathy .clinical correlation recommended
[2020-01-12 10:00] VITALS: BP 107/50; PULSE 68; RESP 20; TEMP 36.8; O2SAT 97
--- NOTE | 2020-01-12 11:37 | PM.DS ---
DS: Admitting Diagnosis Admitting Diagnosis Admitting Diagnosis: CHF exacerbation, pneumonia, COPD DS: Discharge Diagnosis Discharge Diagnosis (1) Nasal bone fracture: Qualifiers: Encounter type: initial encounter Fracture type: closed Qualified Code(s): S02.2XXA - Fracture of nasal bones, initial encounter for closed fracture Code(s): S02.2XXA - Fracture of nasal bones, initial encounter for closed fracture Status: Acute Assessment and Plan: Due to fall, stable. (2) Altered mental status: Qualifiers: Altered mental status type: somnolence Qualified Code(s): R40.0 - Somnolence Code(s): R41.82 - Altered mental status, unspecified Status: Acute Assessment and Plan: Back to his baseline (3) Tobacco dependence: Code(s): F17.200 - Nicotine dependence, unspecified, uncomplicated Status: Chronic Assessment and Plan: Unchanged smokes 2 packs a day. (4) Suspected 2019 novel coronavirus infection: Code(s): Z20.828 - Contact with and (suspected) exposure to other viral communicable diseases Status: Acute Assessment and Plan: Ruled out (5) Acute hypoxemic respiratory failure: Code(s): J96.01 - Acute respiratory failure with hypoxia Status: Acute Assessment and Plan: Likely secondary to COPD and CHF Did not required oxygen going home. (6) Leukocytosis: Qualifiers: Leukocytosis type: unspecified Qualified Code(s): D72.829 - Elevated white blood cell count, unspecified Code(s): D72.829 - Elevated white blood cell count, unspecified Status: Acute Assessment and Plan: Likely to be reactive. (7) Acute exacerbation of chronic obstructive pulmonary disease (COPD): Code(s): J44.1 - Chronic obstructive pulmonary disease with (acute) exacerbation Status: Acute Assessment and Plan: Resolved. (8) Acute exacerbation of CHF (congestive heart failure): Qualifiers: Heart failure type: unspecified Qualified Code(s): I50.9 - Heart failure, unspecified Code(s): I50.9 - Heart failure, unspecified Status: Acute Assessment and Plan: Was diuresed gently. (9) Elevated troponin: Code(s): R77.8 - Other specified abnormalities of plasma proteins Status: Acute Assessment and Plan: Likely demand ischemia. DS: Summary Time Spent with Patient Time attestation: Total time spent providing and/or coordinating discharge services: Exam Narrative: Exam Narrative: Sitting in bed NAD. Const: General: other (Chronically ill looking.) Nutritional Appearance: thin Orientation/consciousness: patient oriented x3 HENMT: Head: normal to inspection and normocephalic Ears: hearing grossly normal bilaterally General nose exam: Normal external nose present Face and sinus: normal facial exam Teeth and gingiva: poor dentition Eyes: General: appearance normal, both eyes and all related structures Pupils: Equal, round and reactive pupils present EOM: EOMs intact bilaterally Neck: Neck: full ROM, no lymphadenopathy and no JVD Resp: Auscultation: clear to auscultation bilaterally Cardio: Jugular venous distension: no JVD Rate: regular rate Rhythm: regular rhythm GI: GI Palp: Yes Soft to palpation and Yes No hepatosplenomegaly present Skin: General skin exam: normal color Lesions: no lesions Rashes: no rashes Trauma: no lacerations or abrasions Wounds: no wounds Neuro: General: patient oriented x3 and CN's II-XI intact bilaterally Cranial nerves: Yes CN's II-XII intact bilaterally and Yes Equal, round and reactive pupils present Motor exam (neuro): 5/5 motor strength present throughout Sensory Exam: normal sensation Extrem: General: normal to inspection and no pedal edema DS: Data Data Completed and Pending Labs on day of discharge: Labs from last 24 hours 01/12/20 01/12/20 07:50 07:50 WBC 11.8 H RBC 4.66 H
--- NOTE | 2020-01-13 13:51 | PC.NURSE ---
Received call from that patient does not have a pcp established at this time. He is in need of his refills. Dr. Cochran okayed to refill for one month.Called into [facility] pharmacy.
== END 2020-01-12 12:30 | disposition home or self-care (01) | DRG 291 ==
LOC: ANHED 22:12 → ANHIMU 01-09 05:24 → ANH2MED 01-11 12:37 → ANHIMU 01-13 13:34
PROVIDERS: Student in an Organized Health Care Education/Training Program; Admitting Provider Family Medicine; Emergency Provider Emergency Medicine; Visit Provider Internal Medicine
DX: J96.01 Acute respiratory failure with hypoxia; I11.0 Hypertensive heart disease with heart failure; G93.40 Encephalopathy, unspecified; I24.8 Other forms of acute ischemic heart disease; I50.23 Acute on chronic systolic (congestive) heart failure; J43.9 Emphysema, unspecified; I35.0 Nonrheumatic aortic (valve) stenosis; Z20.828 Contact with and (suspected) exposure to other viral communicable diseases; S02.2XXA Fracture of nasal bones, initial encounter for closed fracture; W19.XXXA Unspecified fall, initial encounter; I25.10 Atherosclerotic heart disease of native coronary artery without angina pectoris; F17.210 Nicotine dependence, cigarettes, uncomplicated; D72.829 Elevated white blood cell count, unspecified; R40.0 Somnolence; M19.90 Unspecified osteoarthritis, unspecified site; I25.2 Old myocardial infarction; Z28.21 Immunization not carried out because of patient refusal; Z79.82 Long term (current) use of aspirin; Z79.899 Other long term (current) drug therapy; Z95.1 Presence of aortocoronary bypass graft
CPT/HCPCS: 36415; 36600; 70450; 70486; 71045; 80048; 82375; 82805; 83050; 83735; 83880; 84443; 84484; 85025; 85027; 87040; 87635; 87804; 93005; 93306; 94640; 95816; 96365; 96375; 97110; 97116; 97161; 97165; 99285; A9270; C9803; J0696; J1940; J1956; J2060; U0003